=== PATIENT | female | born 1990 | race Caucasian/White ===

== ENCOUNTER 2021-02-27 21:34 | Emergency (ER) | payer OTHER ==
[2021-02-27 21:50] VITALS: BP 110/73; PULSE 70; TEMP 98.2; BMI 18.4
[2021-02-27 22:43] LABS: URINE APPEARANCE CLEAR; URINE BILIRUBIN NEGATIVE (NEGATIVE); URINE COLOR YELLOW; URINE GLUCOSE (UA) NEGATIVE (NEGATIVE); URINE KETONE NEGATIVE (NEGATIVE); URINE LEUK ESTERASE NEGATIVE (NEGATIVE); URINE NITRITE NEGATIVE (NEGATIVE); URINE PROTEIN NEGATIVE (NEGATIVE); URINE UROBILINOGEN 0.2 mg/dL (0.2-1.0)
[2021-02-27 22:45] LABS: HCG,QUALITATIVE URINE Negative
[2021-02-27 23:19] LABS: BASO % 0.5 % (0-2.0); EOS % 2.8 % (0-4.5); HEMATOCRIT 36.3 % (32.4-45.2); HEMOGLOBIN 12.1 GM/dL (10.7-15.3); MCH 28.8 pg (25.7-33.7); MCHC 33.4 g/dl (32.0-36.0); MEAN CELL VOLUME 86.1 fl (80-96); MEAN PLT VOLUME 8.4 fl (7.5-11.1); MONO % 9.3 % (3.8-10.2); NEUT % 58.4 % (42.8-82.8); PLATELET COUNT 198 10^3/uL (134-434); RBC 4.21 M/mm3 (3.60-5.2); RDW 13.4 % (11.6-15.6); WHITE BLOOD COUNT 6.5 K/mm3 (4.0-10.0)
[2021-02-27 23:41] LABS: BLOOD UREA NITROGEN 9.1 mg/dL (7-18); CALCIUM 8.5 mg/dL (8.5-10.1)
[2021-02-27 23:44] LABS: CREATININE 0.7 mg/dL (0.55-1.3)
[2021-02-27 23:45] LABS: BILIRUBIN,TOTAL 0.5 mg/dL (0.2-1)
[2021-02-27 23:46] LABS: TOT PROT 7.3 g/dl (6.4-8.2)
== END 2021-02-28 02:30 | disposition left against medical advice (07) ==
LOC: JER 21:34
DX: R10.2 Pelvic and perineal pain (principal); N83.8 Other noninflammatory disorders of ovary, fallopian tube and broad ligament; R14.0 Abdominal distension (gaseous)
CPT/HCPCS: 36415; 74177-TC; 76830-TC; 76856-TC; 80053; 81003; 83690; 84703; 85025; 87086; 99285-25; Q9967